=== PATIENT | male | born 1990 | race Caucasian/White ===

== ENCOUNTER 2017-05-02 11:44 | Emergency (ER) | payer OTHER ==
[~2017-05-02] VITALS: Ht 167.6 cm; Wt 59.0 kg
[~2017-05-02 11:44] MED LIST: AUGMENTIN 875875 MG PO; CARBIDOPA/LEVOD1 TA1 PO; CATAFLAM50 MG PO; CATAPRES0.1 MG PO; CLEOCIN150 MG PO; CLINDAMYCIN HC300 MG PO; FLEXERIL10 MG PO; IBU800 M1 PO; KEFLEX500 MG PO; MEDROL DOSEPAK4 MG PO; MOTRIN800 MG PO; NKHM; NKHM PO; NO HOME MEDICATIONS; NORFLEX100 MG PO; QUETIAPINE FUMA25 MG PO; TRAMADOL HCL50 MG PO; ULTRAM50 MG PO; VICODIN 5/500 505 MG PO; ZOFRAN 4 MG ED2 TAB PO; ZOFRAN ODT4 MG PO; ZOFRAN ODT4 MG SL; ZOLOFT PO
[2017-05-02 11:50] VITALS: BP 128/86
[2017-05-02] MEDS ORDERED: SUBOXONE 8 MG-1 EACH SL (11:51)
[2017-05-02] MEDS ORDERED: VIVITROL380 MG IM (11:52)
[2017-05-02] MEDS ORDERED: LIDEX 0.05% CRE15 GM T (12:03)
== END 2017-05-02 12:10 | disposition home or self-care (01) ==
LOC: ED 11:44
DX: S70.362A Insect bite (nonvenomous), left thigh, initial encounter (principal); F17.200 Nicotine dependence, unspecified, uncomplicated; F11.10 Opioid abuse, uncomplicated; Z90.89 Acquired absence of other organs; Z79.899 Other long term (current) drug therapy; Z88.2 Allergy status to sulfonamides; Z91.013 Allergy to seafood; W57.XXXA Bitten or stung by nonvenomous insect and other nonvenomous arthropods, initial encounter; Y93.89 Activity, other specified; Y92.89 Other specified places as the place of occurrence of the external cause; Y99.9 Unspecified external cause status

== ENCOUNTER 2017-05-14 05:46 | Emergency (ER) | payer OTHER ==
[~2017-05-14] VITALS: Ht 180.3 cm; Wt 59.0 kg
[~2017-05-14 05:46] MED LIST changes: +LIDEX 0.05% CRE15 GM T; +SUBOXONE 8 MG-1 EACH SL; +VIVITROL380 MG IM
[2017-05-14 06:55] VITALS: BP 124/72
== END 2017-05-14 08:35 | disposition other institution (70) ==
LOC: ED 05:46
DX: M54.6 Pain in thoracic spine (principal); M54.2 Cervicalgia; R51 Headache; F10.129 Alcohol abuse with intoxication, unspecified; F14.10 Cocaine abuse, uncomplicated; F12.10 Cannabis abuse, uncomplicated; F17.200 Nicotine dependence, unspecified, uncomplicated; K21.9 Gastro-esophageal reflux disease without esophagitis; Z86.19 Personal history of other infectious and parasitic diseases; Z79.899 Other long term (current) drug therapy; Z90.89 Acquired absence of other organs; Z88.2 Allergy status to sulfonamides; Z91.013 Allergy to seafood; V09.9XXA Pedestrian injured in unspecified transport accident, initial encounter; Y93.01 Activity, walking, marching and hiking; Y92.89 Other specified places as the place of occurrence of the external cause; Y99.9 Unspecified external cause status

== ENCOUNTER 2017-08-04 14:42 | Emergency (ER) | payer OTHER ==
[~2017-08-04] VITALS: Ht 167.6 cm; Wt 61.2 kg
--- NOTE | ~2017-08-04 | EKG ---
[place], [place] ELECTROCARDIOGRAM REPORT NAME: OPAL COVARRUBIAS UNIT #: [id number] ROOM: DOCTOR: KALI SANCHEZ,SARAH BIRTHDATE: [birth year] DOS: 08/04/2017 TIME: 1455 hours. IMPRESSION: 1. Sinus rhythm, sinus bradycardia. 2. Nonspecific ST-T changes. SARAH BASS MD CM:EKGRPT:ELECTROCARDIOGRAM REPORT [id number] SARAH BASS MD
[2017-08-04 14:49] VITALS: BP 128/67
== END 2017-08-05 01:26 | disposition left against medical advice (07) ==
LOC: ED 14:42
DX: R07.89 Other chest pain (principal); Z53.21 Procedure and treatment not carried out due to patient leaving prior to being seen by health care provider

== ENCOUNTER 2017-11-16 23:29 | Emergency (ER) | payer OTHER ==
[~2017-11-16] VITALS: Ht 167.6 cm; Wt 56.7 kg
[2017-11-16 23:37] VITALS: BP 130/75
[2017-11-16] MEDS ORDERED: ANTABUSE250 M1 PO (23:40)
== END 2017-11-17 02:14 | disposition home or self-care (01) ==
LOC: ED 23:29
DX: S89.92XA Unspecified injury of left lower leg, initial encounter (principal); F17.200 Nicotine dependence, unspecified, uncomplicated; F12.10 Cannabis abuse, uncomplicated; F11.10 Opioid abuse, uncomplicated; F14.10 Cocaine abuse, uncomplicated; Z90.89 Acquired absence of other organs; Z88.2 Allergy status to sulfonamides; Z91.013 Allergy to seafood; Z79.899 Other long term (current) drug therapy; X50.1XXA Overexertion from prolonged static or awkward postures, initial encounter; Y93.39 Activity, other involving climbing, rappelling and jumping off; Y92.69 Other specified industrial and construction area as the place of occurrence of the external cause; Y99.9 Unspecified external cause status

== ENCOUNTER 2018-03-23 13:57 | Inpatient (IN) | payer OTHER ==
[~2018-03-23] VITALS: Ht 167.6 cm; Wt 58.6 kg
[~2018-03-23 13:57] MED LIST changes: +ANTABUSE250 M1 PO
[2018-03-23 15:00] VITALS: BP 130/75
[2018-03-23 16:00] VITALS: BP 130/75
[2018-03-23 16:53] LABS: BASO % 0.2 % (0.0-1.0); EOS # 0.1 10*3/uL (0.0-0.4); HEMATOCRIT 44.6 % (42.0-52.0); HEMOGLOBIN 14.7 g/dl (14.0-18.0); LYMPH # 1.7 10*3/uL (1.3-4.4); MEAN CELL VOLUME 85.3 fl (80.0-94.0); MEAN CORPUSCULAR HGB 28.1 pg (27.0-31.0); MEAN PLATELET VOLUME 9.4 fl (9.6-12.3); MONO % 7.5 % (3.0-9.0); NEUT # 10.3 10*3/uL (2.3-7.9); NEUT % 77.8 % (47.0-73.0); PLATELET COUNT AUTOMATED 241 10*3/uL (130-400); RED BLOOD COUNT 5.23 10*6/uL (4.50-5.90); RED CELL DISTRI WIDTH 12.6 % (0-14.5); WHITE BLOOD COUNT 13.2 10*3/uL (4.8-10.8)
[2018-03-23 17:02] LABS: INTERNATIONAL NORM RATIO 0.9 (2.0-3.5)
[2018-03-23 17:08] LABS: ALBUMIN 3.8 gm/dl (3.1-4.5); ALKALINE PHOSPHATASE 163 U/L (45-117); BUN 14 mg/dl (7-24); CHLORIDE 103 mmol/L (98-107); CREATININE 1.01 mg/dL (0.70-1.30); SGOT/AST 70 IU/L (3-35); SGPT/ALT 107 U/L (12-78); SODIUM 137 mmol/L (136-145); TOTAL PROTEIN 8.2 gm/dL (6.4-8.2)
[2018-03-23 17:08] LABS: BILIRUBIN NEGATIVE (NEGATIVE); BLOOD NEGATIVE (NEGATIVE); CLARITY CLEAR (CLEAR); COLOR YELLOW (YELLOW); GLUCOSE NEGATIVE (NEGATIVE); KETONE NEGATIVE (NEGATIVE); LEUKO ESTERASE NEGATIVE (NEGATIVE); NITRITE NEGATIVE (NEGATIVE); SPECIFIC GRAVITY 1.015 (1.005-1.030); UROBILINOGEN 0.2 E.U./dl (0.2-1.0)
[2018-03-23 17:10] LABS: ETHYL ALCOHOL < 3.0 mg/dl (<3)
[2018-03-23 17:21] LABS: BACTERIA TRACE; MUCOUS TRACE; RBC 0-2 rbc/hpf (0-2)
[2018-03-23 17:48] LABS: URINE AMPHETAMINES < 1000 (1000ng/ml); URINE BARBITURATES < 200 (200ng/ml); URINE BENZODIAZEPINES < 200 (200ng/ml); URINE CANNABINOIDS (THC) > 50 (50ng/ml); URINE COCAINE > 300 (300ng/ml); URINE METHADONE < 300 (300ng/ml); URINE OPIATES > 300 (300ng/ml); URINE PHENCYCLIDINE < 25 (25ng/ml)
[2018-03-23 20:00] VITALS: BP 122/56
[2018-03-24] VITALS: BP 118/75
[2018-03-24 08:00] VITALS: BP 114/66
== END 2018-03-24 13:12 | disposition left against medical advice (07) | DRG 894 ==
LOC: 4E 13:57
PROVIDERS: Internal Medicine
DX: F11.10 Opioid abuse, uncomplicated (principal); B19.20 Unspecified viral hepatitis C without hepatic coma; F10.10 Alcohol abuse, uncomplicated; F32.9 Major depressive disorder, single episode, unspecified; R74.0 Nonspecific elevation of levels of transaminase and lactic acid dehydrogenase [LDH]; Z53.21 Procedure and treatment not carried out due to patient leaving prior to being seen by health care provider; K21.9 Gastro-esophageal reflux disease without esophagitis; Z81.1 Family history of alcohol abuse and dependence; Z81.8 Family history of other mental and behavioral disorders; Z88.2 Allergy status to sulfonamides; Z91.013 Allergy to seafood; Z72.0 Tobacco use

== ENCOUNTER 2020-03-19 12:25 | Inpatient (IN) | payer OTHER ==
[~2020-03-19] VITALS: Ht 167 cm; Wt 61.2 kg
[2020-03-19 13:37] VITALS: BP 105/52
[2020-03-19 15:02] LABS: BASO # 0.1 10*3/uL (0.0-0.1); BASO % 0.6 % (0.0-1.0); EOS # 0.4 10*3/uL (0.0-0.4); EOS % 4.4 % (1.0-4.0); HEMATOCRIT 39.6 % (42.0-52.0); LYMPH # 3.3 10*3/uL (1.3-4.4); LYMPH % 38.7 % (27.0-41.0); MEAN CORPUSCULAR HGB 27.9 pg (27.0-31.0); MEAN CORPUSCULAR HGB CONC 32.8 g/dl (33.0-37.0); MEAN PLATELET VOLUME 9.9 fl (9.6-12.3); MONO # 0.7 10*3/uL (0.1-1.0); MONO % 8.2 % (3.0-9.0); NEUT # 4.1 10*3/uL (2.3-7.9); NEUT % 47.7 % (47.0-73.0); PLATELET COUNT AUTOMATED 271 10*3/uL (130-400); RED BLOOD COUNT 4.66 10*6/uL (4.50-5.90); RED CELL DISTRI WIDTH 13.5 % (0-14.5); WHITE BLOOD COUNT 8.6 10*3/uL (4.8-10.8)
[2020-03-19 15:11] LABS: INTERNATIONAL NORM RATIO 0.9 (2.0-3.5)
[2020-03-19 15:17] LABS: ALBUMIN 3.5 gm/dl (3.1-4.5); ALKALINE PHOSPHATASE 70 U/L (45-117); BUN 20 mg/dl (7-24); CHLORIDE 105 mmol/L (98-107); CREATININE 0.93 mg/dL (0.70-1.30); POTASSIUM 4.2 mmol/L (3.5-5.1); SGOT/AST 44 IU/L (3-35); SGPT/ALT 102 U/L (12-78); SODIUM 137 mmol/L (136-145); TOTAL PROTEIN 6.9 gm/dL (6.4-8.2)
[2020-03-19 15:26] LABS: ETHYL ALCOHOL < 3.0 mg/dl (<3)
[2020-03-19 16:00] VITALS: BP 122/83
[2020-03-19 19:55] LABS: URINE AMPHETAMINES > 1000 (1000ng/ml); URINE BARBITURATES < 200 (200ng/ml); URINE BENZODIAZEPINES < 200 (200ng/ml); URINE CANNABINOIDS (THC) > 50 (50ng/ml); URINE COCAINE > 300 (300ng/ml); URINE METHADONE < 300 (300ng/ml); URINE OPIATES > 300 (300ng/ml); URINE PHENCYCLIDINE < 25 (25ng/ml)
[2020-03-19 20:00] VITALS: BP 96/47
[2020-03-19 20:45] VITALS: BP 110/56
[2020-03-20] VITALS: BP 117/67
[2020-03-20 03:00] VITALS: BP 115/68
[2020-03-20 08:00] VITALS: BP 92/50
[2020-03-20 12:00] VITALS: BP 100/45
== END 2020-03-20 16:24 | disposition left against medical advice (07) | DRG 770 ==
LOC: 4E 12:25
PROVIDERS: Internal Medicine; ADMIT Internal Medicine
DX: F11.23 Opioid dependence with withdrawal (principal); F19.10 Other psychoactive substance abuse, uncomplicated; F12.10 Cannabis abuse, uncomplicated; F17.210 Nicotine dependence, cigarettes, uncomplicated; K21.9 Gastro-esophageal reflux disease without esophagitis; B18.2 Chronic viral hepatitis C; F32.9 Major depressive disorder, single episode, unspecified; Z53.29 Procedure and treatment not carried out because of patient's decision for other reasons; Z91.5 Personal history of self-harm; Z81.1 Family history of alcohol abuse and dependence; Z81.8 Family history of other mental and behavioral disorders; Z88.2 Allergy status to sulfonamides; Z91.013 Allergy to seafood; Z71.6 Tobacco abuse counseling

== ENCOUNTER 2020-08-31 15:51 | Inpatient (IN) | payer OTHER ==
[~2020-08-31] VITALS: Ht 167.6 cm; Wt 59.6 kg
[2020-08-31 17:15] VITALS: BP 117/70
--- NOTE | 2020-08-31 17:15 | NUR ---
29 year old MALE admitted to room # 428 for stabilization. 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 Compliant with admission procedure. See assessment forms for additional information about patient status.
--- NOTE | 2020-08-31 17:25 | NUR ---
PATIENT MEETS [facility]. CINA=[id number]. PATIENT IS WANTING TO FOLLOW UP WITH [facility] FOR RESIDENTIAL TREATMENT. NUBIA ENRIQUEZ B.A. HOTEL MAINTENANCE ENGINEER
[2020-08-31 17:35] LABS: BASO % 0.3 % (0.0-1.0); EOS # 0.2 10*3/uL (0.0-0.4); EOS % 2.9 % (1.0-4.0); HEMATOCRIT 42.4 % (42.0-52.0); LYMPH # 2.4 10*3/uL (1.3-4.4); LYMPH % 33.1 % (27.0-41.0); MEAN CELL VOLUME 84.6 fl (80.0-94.0); MEAN CORPUSCULAR HGB 27.1 pg (27.0-31.0); MEAN CORPUSCULAR HGB CONC 32.1 g/dl (33.0-37.0); MEAN PLATELET VOLUME 9.2 fl (9.6-12.3); MONO # 0.5 10*3/uL (0.1-1.0); MONO % 6.2 % (3.0-9.0); NEUT # 4.2 10*3/uL (2.3-7.9); NEUT % 57.4 % (47.0-73.0); PLATELET COUNT AUTOMATED 406 10*3/uL (130-400); RED BLOOD COUNT 5.01 10*6/uL (4.50-5.90); RED CELL DISTRI WIDTH 12.8 % (0-14.5); WHITE BLOOD COUNT 7.2 10*3/uL (4.8-10.8)
[2020-08-31] MEDS ORDERED: NEURONTIN800 MG PO (17:37)
[2020-08-31 17:49] LABS: ALBUMIN 4.3 gm/dl (3.1-4.5); ALKALINE PHOSPHATASE 83 U/L (45-117); BUN 15 mg/dl (7-24); CHLORIDE 101 mmol/L (98-107); CREATININE 0.73 mg/dL (0.70-1.30); POTASSIUM 4.3 mmol/L (3.5-5.1); SGOT/AST 30 IU/L (3-35); SGPT/ALT 57 U/L (12-78); SODIUM 136 mmol/L (136-145); TOTAL PROTEIN 8.4 gm/dL (6.4-8.2)
[2020-08-31 17:51] LABS: ETHYL ALCOHOL < 3.0 mg/dl (<3)
[2020-08-31 20:00] VITALS: BP 121/65
[2020-08-31 20:28] LABS: BILIRUBIN Negative (Negative); BLOOD Negative (Negative); CLARITY Cloudy (Clear); COLOR Yellow (Yellow); GLUCOSE Negative (Negative); KETONE Negative (Negative); LEUKO ESTERASE Negative (Negative); NITRITE Negative (Negative); PH 7.5 (4.5-8.0)
[2020-08-31 20:40] LABS: BACTERIA TRACE; RBC 0-2 rbc/hpf (0-2)
[2020-08-31 21:32] LABS: URINE AMPHETAMINES > 1000 (1000ng/ml); URINE BARBITURATES > 200 (200ng/ml); URINE BENZODIAZEPINES < 200 (200ng/ml); URINE CANNABINOIDS (THC) > 50 (50ng/ml); URINE COCAINE < 300 (300ng/ml); URINE METHADONE < 300 (300ng/ml); URINE OPIATES > 300 (300ng/ml)
[2020-08-31 21:33] LABS: URINE PHENCYCLIDINE < 25 (25ng/ml)
[2020-09-01] VITALS: BP 99/45
[2020-09-01 08:00] VITALS: BP 102/46
--- NOTE | 2020-09-01 15:41 | NUR ---
[facility] STAFF IN TO SEE PATIENT. PATIENTHAS BEEN ACCEPTED TO [facility] FOR RESIDENTIAL TREATMENT. [facility] WILL PROVIDE TRANSPORTION ON August AT NOON. NUBIA ENRIQUEZ B.A. STUDY SPECIALIST
[2020-09-01 16:00] VITALS: BP 116/68
[2020-09-01 20:00] VITALS: BP 136/70
[2020-09-02] VITALS: BP 122/85
--- NOTE | 2020-09-02 04:18 | NUR ---
24 HR chart check completed.
[2020-09-02 08:00] VITALS: BP 90/45
--- NOTE | 2020-09-02 08:14 | NUR ---
24 HR chart check completed.
[2020-09-02] MEDS ORDERED: NEURONTIN800 MG PO (11:09)
--- NOTE | 2020-09-02 11:30 | NUR ---
Discharge instructions reviewed with patient/family. Patient receptive and verbalizes understanding. Follow-up care arranged. Written instructions given to patient/family. ORALIA OWEN
== END 2020-09-02 12:17 | disposition home or self-care (01) | DRG 773 ==
LOC: 4E 15:51
PROVIDERS: Student in an Organized Health Care Education/Training Program; ADMIT Internal Medicine; ATTEND Internal Medicine
DX: F11.23 Opioid dependence with withdrawal (principal); F12.10 Cannabis abuse, uncomplicated; D47.3 Essential (hemorrhagic) thrombocythemia; F41.9 Anxiety disorder, unspecified; F32.9 Major depressive disorder, single episode, unspecified; F19.10 Other psychoactive substance abuse, uncomplicated; F17.210 Nicotine dependence, cigarettes, uncomplicated; K21.9 Gastro-esophageal reflux disease without esophagitis; Z91.5 Personal history of self-harm; Z87.11 Personal history of peptic ulcer disease; Z86.19 Personal history of other infectious and parasitic diseases; Z81.1 Family history of alcohol abuse and dependence; Z81.8 Family history of other mental and behavioral disorders; Z88.2 Allergy status to sulfonamides; Z91.013 Allergy to seafood; Z79.899 Other long term (current) drug therapy

== ENCOUNTER 2022-06-25 15:43 | Emergency (ER) | payer OTHER ==
[~2022-06-25] VITALS: Ht 167.6 cm; Wt 63.5 kg
[~2022-06-25 15:43] MED LIST changes: +NEURONTIN800 MG PO
[2022-06-25 15:49] VITALS: BP 148/72
== END 2022-06-25 16:43 | disposition left against medical advice (07) ==
LOC: ED 15:43
DX: Z53.21 Procedure and treatment not carried out due to patient leaving prior to being seen by health care provider (principal)

== ENCOUNTER 2022-08-12 01:39 | Emergency (ER) | payer OTHER | END 2022-08-12 05:40 | disposition left against medical advice (07) | LOC: ED 01:39 | DX: Z13.89 Encounter for screening for other disorder (principal); Z90.89 Acquired absence of other organs; Z87.891 Personal history of nicotine dependence; Z88.2 Allergy status to sulfonamides; Z91.013 Allergy to seafood ==

== ENCOUNTER → 2022-12-16 | Outpatient (CLI) | payer OTHER ==
[2022-12-16 15:37] LABS: BASO % 0.2 % (0.0-1.0); EOS # 0.1 10*3/uL (0.0-0.4); EOS % 1.4 % (1.0-4.0); HEMATOCRIT 39.5 % (42.0-52.0); LYMPH # 1.2 10*3/uL (1.3-4.4); LYMPH % 18.9 % (27.0-41.0); MEAN CELL VOLUME 85.3 fl (80.0-94.0); MEAN CORPUSCULAR HGB 27.6 pg (27.0-31.0); MEAN CORPUSCULAR HGB CONC 32.4 g/dl (33.0-37.0); MEAN PLATELET VOLUME 9.5 fl (9.6-12.3); MONO # 0.6 10*3/uL (0.1-1.0); MONO % 9.1 % (3.0-9.0); NEUT # 4.4 10*3/uL (2.3-7.9); NEUT % 70.1 % (47.0-73.0); PLATELET COUNT AUTOMATED 252 10*3/uL (130-400); RED BLOOD COUNT 4.63 10*6/uL (4.50-5.90); RED CELL DISTRI WIDTH 13.2 % (0-14.5); WHITE BLOOD COUNT 6.2 10*3/uL (4.8-10.8)
[2022-12-16 16:00] LABS: ALKALINE PHOSPHATASE 71 U/L (46-116); BUN 13 mg/dl (9-23); CHLORIDE 104 mmol/L (98-107); FREE T4 1.51 ng/dl (0.89-1.76); GAMMA GLUTAMYL TRANSPEPTIDASE 20 U/L (0-73); POTASSIUM 4.1 mmol/L (3.4-5.1); SGPT/ALT 73 U/L (10-49); THYROID STIM HORMONE (HS) 1.308 uIU/ml (0.550-4.780); TOTAL PROTEIN 6.8 gm/dL (6.0-8.0)
[2022-12-20 14:08] LABS: HCV LOG 10 6.726 (.); HCV RT-PCR RFX 5320000 IU/mL (.)
== END | disposition home or self-care (01) ==
LOC: LAB 14:26
PROVIDERS: ATTEND Nurse Practitioner Primary Care
DX: S92.902A Unspecified fracture of left foot, initial encounter for closed fracture (principal); F41.9 Anxiety disorder, unspecified; B18.2 Chronic viral hepatitis C; J40 Bronchitis, not specified as acute or chronic; X58.XXXA Exposure to other specified factors, initial encounter; Y93.89 Activity, other specified; Y92.89 Other specified places as the place of occurrence of the external cause; Y99.8 Other external cause status

== ENCOUNTER → 2022-12-28 | Day surgery (SDC) | payer OTHER ==
[2022-12-23 14:44] VITALS: BP 125/64
[~2022-12-28] VITALS: Ht 170.2 cm
[~2022-12-28] MED LIST changes: +ATIVAN1 MG PO; +VIBRAMYCIN100 MG PO; +VISTARIL25 MG PO; +XARELTO10 MG PO
[2022-12-28 07:43] VITALS: BP 98/39
[2022-12-28 11:30] VITALS: BP 86/40
[2022-12-28 11:45] VITALS: BP 115/64
[2022-12-28 12:00] VITALS: BP 109/56
[2022-12-28 12:15] VITALS: BP 91/46
[2022-12-28 12:30] VITALS: BP 91/48
== END | disposition home or self-care (01) ==
LOC: SDC 12-19 12:30
PROVIDERS: ATTEND Podiatrist Foot & Ankle Surgery
DX: M21.612 Bunion of left foot (principal); M19.072 Primary osteoarthritis, left ankle and foot; F41.9 Anxiety disorder, unspecified; F33.2 Major depressive disorder, recurrent severe without psychotic features; J40 Bronchitis, not specified as acute or chronic; B18.2 Chronic viral hepatitis C; J43.9 Emphysema, unspecified; E55.9 Vitamin D deficiency, unspecified; Z88.1 Allergy status to other antibiotic agents; Z91.013 Allergy to seafood; F17.210 Nicotine dependence, cigarettes, uncomplicated; F90.9 Attention-deficit hyperactivity disorder, unspecified type; Z79.899 Other long term (current) drug therapy

== ENCOUNTER 2023-01-12 17:33 | Emergency (ER) | payer OTHER ==
[~2023-01-12] VITALS: Ht 167.6 cm; Wt 61.2 kg
[2023-01-12 17:49] VITALS: BP 133/76
== END 2023-01-12 18:19 ==
LOC: ED 17:33
DX: S09.90XA Unspecified injury of head, initial encounter (principal); Z88.2 Allergy status to sulfonamides; Z91.013 Allergy to seafood; Z90.89 Acquired absence of other organs; F17.200 Nicotine dependence, unspecified, uncomplicated; Z98.890 Other specified postprocedural states; Y08.89XA Assault by other specified means, initial encounter; Y93.89 Activity, other specified; Y92.89 Other specified places as the place of occurrence of the external cause; Y99.8 Other external cause status

== ENCOUNTER 2023-01-26 18:30 | Emergency (ER) | payer OTHER ==
[~2023-01-26] VITALS: Wt 63.5 kg
[2023-01-26 18:58] VITALS: BP 106/58
== END 2023-01-26 21:44 | disposition home or self-care (01) ==
LOC: ED 18:30
DX: S09.90XA Unspecified injury of head, initial encounter (principal); S90.32XA Contusion of left foot, initial encounter; Z90.89 Acquired absence of other organs; Z88.8 Allergy status to other drugs, medicaments and biological substances; Z88.2 Allergy status to sulfonamides; Z91.018 Allergy to other foods; Y08.89XA Assault by other specified means, initial encounter; Y93.89 Activity, other specified; Y92.89 Other specified places as the place of occurrence of the external cause; Y99.8 Other external cause status

== ENCOUNTER 2023-06-05 15:33 | Emergency (ER) | payer OTHER ==
[~2023-06-05] VITALS: Ht 170.1 cm; Wt 54.4 kg
[2023-06-05 15:36] VITALS: BP 101/48
== END 2023-06-05 16:13 | disposition left against medical advice (07) ==
LOC: ED 15:33
DX: T50.901A Poisoning by unspecified drugs, medicaments and biological substances, accidental (unintentional), initial encounter (principal); R40.0 Somnolence; F17.200 Nicotine dependence, unspecified, uncomplicated; Z88.2 Allergy status to sulfonamides; Z91.013 Allergy to seafood; Z79.899 Other long term (current) drug therapy; Z79.2 Long term (current) use of antibiotics; Z90.89 Acquired absence of other organs; Z98.890 Other specified postprocedural states; Y92.89 Other specified places as the place of occurrence of the external cause

== ENCOUNTER 2023-10-14 05:35 | Emergency (ER) | payer OTHER ==
[2023-10-14 05:42] VITALS: BP 116/73
== END 2023-10-14 06:39 ==
LOC: ED 05:35
DX: Z04.71 Encounter for examination and observation following alleged adult physical abuse (principal); F17.210 Nicotine dependence, cigarettes, uncomplicated; Z88.2 Allergy status to sulfonamides; Z91.013 Allergy to seafood; Z79.899 Other long term (current) drug therapy; Z79.2 Long term (current) use of antibiotics; Z90.89 Acquired absence of other organs; Z98.890 Other specified postprocedural states

== ENCOUNTER 2024-05-22 15:15 | Emergency (ER) | payer OTHER ==
[~2024-05-22] VITALS: Ht 167.6 cm; Wt 63.5 kg
[2024-05-22 15:57] LABS: BASO % 0.3 % (0.0-1.0); EOS # 0.2 10*3/uL (0.0-0.4); EOS % 2.9 % (1.0-4.0); HEMATOCRIT 40.3 % (42.0-52.0); LYMPH # 1.6 10*3/uL (1.3-4.4); MEAN CELL VOLUME 84.7 fl (80.0-94.0); MEAN CORPUSCULAR HGB 28.4 pg (27.0-31.0); MEAN CORPUSCULAR HGB CONC 33.5 g/dl (33.0-37.0); MEAN PLATELET VOLUME 9.7 fl (9.6-12.3); MONO # 0.6 10*3/uL (0.1-1.0); MONO % 8.4 % (3.0-9.0); NEUT # 4.2 10*3/uL (2.3-7.9); NEUT % 64.1 % (47.0-73.0); PLATELET COUNT AUTOMATED 230 10*3/uL (130-400); RED BLOOD COUNT 4.76 10*6/uL (4.50-5.90); RED CELL DISTRI WIDTH 13.2 % (0-14.5); WHITE BLOOD COUNT 6.6 10*3/uL (4.8-10.8)
[2024-05-22 16:15] LABS: ALKALINE PHOSPHATASE 104 U/L (46-116); BUN 11 mg/dl (9-23); CHLORIDE 103 mmol/L (98-107); ETHYL ALCOHOL 54.8 mg/dl (<3); POTASSIUM 3.5 mmol/L (3.4-5.1); SGPT/ALT 339 U/L (5-49); TOTAL PROTEIN 7.2 gm/dL (6.0-8.0)
[2024-05-22 17:17] VITALS: BP 115/72
[2024-05-22] MEDS ORDERED: BUPRENORPHINE-1 EAC2 SL ×2 (17:27→17:34)
[2024-05-22] MEDS ORDERED: Buprenorphine Hydrochloride 2 MG TAB SL ONE (17:30)
== END 2024-05-22 17:47 ==
LOC: ED 15:15
PROVIDERS: Emergency Medicine
DX: R07.89 Other chest pain (principal); F19.90 Other psychoactive substance use, unspecified, uncomplicated; F32.A Depression, unspecified; K21.9 Gastro-esophageal reflux disease without esophagitis; F14.10 Cocaine abuse, uncomplicated; F11.10 Opioid abuse, uncomplicated; F17.200 Nicotine dependence, unspecified, uncomplicated; F13.10 Sedative, hypnotic or anxiolytic abuse, uncomplicated; Z88.2 Allergy status to sulfonamides; Z91.013 Allergy to seafood; Z90.89 Acquired absence of other organs; Z98.890 Other specified postprocedural states

== ENCOUNTER 2024-06-22 02:42 | Emergency (ER) | payer OTHER ==
[~2024-06-22 02:42] MED LIST changes: +BUPRENORPHINE-1 EAC2 SL
[2024-06-22 03:22] LABS: BASO % 0.2 % (0.0-1.0); EOS % 0.1 % (1.0-4.0); HEMATOCRIT 42.1 % (42.0-52.0); LYMPH # 1.5 10*3/uL (1.3-4.4); LYMPH % 12.9 % (27.0-41.0); MEAN CELL VOLUME 87.7 fl (80.0-94.0); MEAN CORPUSCULAR HGB 28.3 pg (27.0-31.0); MEAN CORPUSCULAR HGB CONC 32.3 g/dl (33.0-37.0); MEAN PLATELET VOLUME 9.7 fl (9.6-12.3); MONO # 0.8 10*3/uL (0.1-1.0); MONO % 7.1 % (3.0-9.0); NEUT # 9.4 10*3/uL (2.3-7.9); NEUT % 79.4 % (47.0-73.0); PLATELET COUNT AUTOMATED 281 10*3/uL (130-400); RED CELL DISTRI WIDTH 13.2 % (0-14.5); WHITE BLOOD COUNT 11.8 10*3/uL (4.8-10.8)
[2024-06-22 03:38] LABS: ALKALINE PHOSPHATASE 101 U/L (46-116); BUN 12 mg/dl (9-23); CHLORIDE 106 mmol/L (98-107); SGPT/ALT 318 U/L (5-49); TOTAL PROTEIN 7.8 gm/dL (6.0-8.0)
[2024-06-22 03:56] LABS: BILIRUBIN Negative (Negative); BLOOD Negative (Negative); CLARITY Cloudy (Clear); COLOR Dark Yellow (Yellow); GLUCOSE Negative (Negative); KETONE 2+ (Negative); LEUKO ESTERASE 1+ (Negative); NITRITE Negative (Negative); PH 5.5 (4.5-8.0); SPECIFIC GRAVITY >= 1.030 (1.001-1.030)
[2024-06-22 04:03] LABS: BACTERIA 1+; RBC 0-2 rbc/hpf (0-2); URINE AMPHETAMINES Positive (1000ng/ml); URINE BARBITURATES Negative (200ng/ml); URINE BENZODIAZEPINES Negative (200ng/ml); URINE CANNABINOIDS (THC) Positive (50ng/ml); URINE COCAINE Positive (300ng/ml); URINE METHADONE Negative (300ng/ml); URINE OPIATES Negative (300ng/ml); URINE PHENCYCLIDINE Negative (25ng/ml); WBC 21-30 wbc/hpf (0-5)
[2024-06-22 04:04] LABS: MUCOUS 1+
[2024-06-22] MEDS ORDERED: Naloxone Hydrochloride 2 MG/2 ML SYR IV ONE (05:05)
[2024-06-22] MEDS ORDERED: Naloxone Hydrochloride 2 MG/2 ML SYR NAS ONE ×2 (05:15→05:45)
[2024-06-22 06:18] VITALS: BP 120/76
== END 2024-06-22 08:14 | disposition home or self-care (01) ==
LOC: ED 02:42
PROVIDERS: Emergency Medicine
DX: T65.891A Toxic effect of other specified substances, accidental (unintentional), initial encounter (principal); R40.4 Transient alteration of awareness; K21.9 Gastro-esophageal reflux disease without esophagitis; F14.10 Cocaine abuse, uncomplicated; F12.10 Cannabis abuse, uncomplicated; F17.200 Nicotine dependence, unspecified, uncomplicated; F11.10 Opioid abuse, uncomplicated; F13.10 Sedative, hypnotic or anxiolytic abuse, uncomplicated; Z88.2 Allergy status to sulfonamides; Z91.013 Allergy to seafood; Z90.89 Acquired absence of other organs; Z98.890 Other specified postprocedural states; Y92.89 Other specified places as the place of occurrence of the external cause

== ENCOUNTER 2024-08-25 20:11 | Emergency (ER) | payer OTHER ==
[~2024-08-25] VITALS: Ht 1737 cm; Wt 61.2 kg
[2024-08-25 20:20] VITALS: BP 117/75
[2024-08-25] MEDS ORDERED: WELLBUTRIN XL300 MG PO (20:22)
[2024-08-25] MEDS ORDERED: Motrin,Rufen800 MG PO (21:17)
== END 2024-08-25 21:34 | disposition home or self-care (01) ==
LOC: ED 20:11
DX: S92.311A Displaced fracture of first metatarsal bone, right foot, initial encounter for closed fracture (principal); S90.31XA Contusion of right foot, initial encounter; F90.9 Attention-deficit hyperactivity disorder, unspecified type; F32.A Depression, unspecified; K21.9 Gastro-esophageal reflux disease without esophagitis; F13.10 Sedative, hypnotic or anxiolytic abuse, uncomplicated; F14.10 Cocaine abuse, uncomplicated; F17.200 Nicotine dependence, unspecified, uncomplicated; F11.10 Opioid abuse, uncomplicated; Z88.2 Allergy status to sulfonamides; Z91.013 Allergy to seafood; Z90.49 Acquired absence of other specified parts of digestive tract; Z90.89 Acquired absence of other organs; Z98.890 Other specified postprocedural states; W22.8XXA Striking against or struck by other objects, initial encounter; Y93.01 Activity, walking, marching and hiking; Y92.009 Unspecified place in unspecified non-institutional (private) residence as the place of occurrence of the external cause; Y99.8 Other external cause status

== ENCOUNTER → 2024-09-30 | Outpatient (CLI) | payer OTHER ==
[~2024-09-30] MED LIST changes: +Motrin,Rufen800 MG PO; +WELLBUTRIN XL300 MG PO
== END | disposition home or self-care (01) ==
LOC: ORTHO 01:58
PROVIDERS: ATTEND Orthopaedic Surgery
DX: S92.414D Nondisplaced fracture of proximal phalanx of right great toe, subsequent encounter for fracture with routine healing (principal); X58.XXXD Exposure to other specified factors, subsequent encounter

== ENCOUNTER 2024-12-18 09:58 | Emergency (ER) | payer OTHER ==
[~2024-12-18] VITALS: Wt 61.2 kg
[2024-12-18 10:25] VITALS: BP 127/72
== END 2024-12-18 11:36 | disposition home or self-care (01) ==
LOC: ED 09:58
DX: H72.92 Unspecified perforation of tympanic membrane, left ear (principal); F14.10 Cocaine abuse, uncomplicated; F12.10 Cannabis abuse, uncomplicated; F17.200 Nicotine dependence, unspecified, uncomplicated; F11.10 Opioid abuse, uncomplicated; F13.10 Sedative, hypnotic or anxiolytic abuse, uncomplicated; Z88.2 Allergy status to sulfonamides; Z91.013 Allergy to seafood; Z90.89 Acquired absence of other organs; Z98.890 Other specified postprocedural states

== ENCOUNTER → 2025-05-24 | Outpatient (CLI) | payer OTHER ==
[2025-05-24 08:24] LABS: BASO # 0.0 10*3/uL (0.0-0.1); BASO % 0.4 % (0.0-1.0); EOS # 0.2 10*3/uL (0.0-0.4); EOS % 2.3 % (1.0-4.0); MEAN CELL VOLUME 88.0 fl (80.0-94.0); MEAN CORPUSCULAR HGB 27.9 pg (27.0-31.0); MEAN PLATELET VOLUME 10.4 fl (9.6-12.3); MONO # 0.3 10*3/uL (0.1-1.0); MONO % 4.8 % (3.0-9.0); NEUT # 2.7 10*3/uL (2.3-7.9); NEUT % 38.9 % (47.0-73.0); NUCLEATED RED BLOOD CELL 0.0 % (0.0-0.0); NUCLEATED RED BLOOD CELL 0.0 10*3/uL (0.0-0.0); PLATELET COUNT AUTOMATED 216 10*3/uL (130-400); RED CELL DISTRI WIDTH 12.8 % (0-14.5)
[2025-05-24 10:03] LABS: BUN 11 mg/dl (9-23); SGPT/ALT 9 U/L (5-49)
[2025-05-25 11:06] LABS: ALPHA-1-ANTITRYPSIN, SERUM 149 mg/dL (95-164)
[2025-05-26 14:07] LABS: ANTI-SMOOTH MUSCLE ANTIBODY 7 Units (0-19)
== END | disposition home or self-care (01) ==
LOC: LAB 06:26 → US 08:30 → LAB 08:30
PROVIDERS: ATTEND Nurse Practitioner Family
DX: R74.01 Elevation of levels of liver transaminase levels (principal); B18.2 Chronic viral hepatitis C; R10.84 Generalized abdominal pain

== ENCOUNTER → 2025-08-01 | Outpatient (CLI) | payer OTHER ==
[2025-08-01 07:35] LABS: BASO # 0.0 10*3/uL (0.0-0.1); BASO % 0.6 % (0.0-1.0); EOS # 0.2 10*3/uL (0.0-0.4); EOS % 2.4 % (1.0-4.0); MEAN CELL VOLUME 88.1 fl (80.0-94.0); MEAN CORPUSCULAR HGB 27.8 pg (27.0-31.0); MEAN PLATELET VOLUME 9.6 fl (9.6-12.3); MONO # 0.4 10*3/uL (0.1-1.0); MONO % 5.6 % (3.0-9.0); NEUT # 2.8 10*3/uL (2.3-7.9); NEUT % 44.2 % (47.0-73.0); NUCLEATED RED BLOOD CELL 0.0 % (0.0-0.0); NUCLEATED RED BLOOD CELL 0.0 10*3/uL (0.0-0.0); PLATELET COUNT AUTOMATED 222 10*3/uL (130-400); RED CELL DISTRI WIDTH 13.0 % (0-14.5)
[2025-08-01 08:19] LABS: BUN 21 mg/dl (9-23); LDL CHOLESTEROL 102 mg/dL (9-159); SGPT/ALT 14 U/L (5-49)
== END | disposition home or self-care (01) ==
LOC: LAB 07-31 09:53
PROVIDERS: ATTEND Nurse Practitioner Family
DX: Z01.818 Encounter for other preprocedural examination (principal); J34.2 Deviated nasal septum; R91.1 Solitary pulmonary nodule; F39 Unspecified mood [affective] disorder; Z13.220 Encounter for screening for lipoid disorders; Z13.29 Encounter for screening for other suspected endocrine disorder; F17.200 Nicotine dependence, unspecified, uncomplicated